=== PATIENT | female | born 1970 | race Two or more races ===

== ENCOUNTER 2018-11-19 06:38 | Outpatient (CLI) | payer OTHER | END 2018-11-19 06:49 | disposition home or self-care (01) | LOC: LAB 06:38 | DX: Z13.1 Encounter for screening for diabetes mellitus (principal); E55.9 Vitamin D deficiency, unspecified; Z12.11 Encounter for screening for malignant neoplasm of colon; N95.1 Menopausal and female climacteric states ==

== ENCOUNTER 2018-11-19 08:21 | Outpatient (CLI) | payer OTHER | END 2018-11-19 08:22 | disposition home or self-care (01) | LOC: MAMO-SONO 08:21 | DX: Z12.31 Encounter for screening mammogram for malignant neoplasm of breast (principal) ==

== ENCOUNTER 2019-01-30 10:08 | Emergency (ER) | payer OTHER ==
[~2019-01-30] VITALS: Ht 167.6 cm; Wt 81.2 kg
[2019-01-30] MEDS ORDERED: MECLIZINE HCL25 MG PO (16:03)
== END 2019-01-30 16:19 | disposition home or self-care (01) ==
LOC: ER 10:08
DX: H81.13 Benign paroxysmal vertigo, bilateral (principal)

== ENCOUNTER 2019-05-11 12:13 | Outpatient (CLI) | payer OTHER ==
[~2019-05-11 12:13] MED LIST: MECLIZINE HCL25 MG PO
== END 2019-05-11 12:51 | disposition home or self-care (01) ==
LOC: LAB 12:13
DX: J11.1 Influenza due to unidentified influenza virus with other respiratory manifestations (principal); A49.3 Mycoplasma infection, unspecified site

== ENCOUNTER 2019-05-13 06:30 | Outpatient (CLI) | payer OTHER | END 2019-05-13 06:35 | disposition home or self-care (01) | LOC: LAB 06:30 | DX: J11.1 Influenza due to unidentified influenza virus with other respiratory manifestations (principal) ==

== ENCOUNTER → 2019-12-30 06:41 | Outpatient (CLI) | payer OTHER | END | disposition home or self-care (01) | LOC: LAB 06:41 | DX: R53.1 Weakness (principal); Z00.8 Encounter for other general examination; Z13.820 Encounter for screening for osteoporosis; M25.50 Pain in unspecified joint; Z13.6 Encounter for screening for cardiovascular disorders ==

== ENCOUNTER 2019-12-30 09:22 | Outpatient (CLI) | payer OTHER | END 2019-12-30 10:55 | disposition home or self-care (01) | LOC: NUCLEAR 09:22 | DX: M25.552 Pain in left hip (principal); M25.551 Pain in right hip; R53.81 Other malaise; Z13.820 Encounter for screening for osteoporosis ==

== ENCOUNTER → 2019-12-31 09:40 | Outpatient (CLI) | payer OTHER | END | disposition home or self-care (01) | LOC: LAB 09:40 | DX: R53.1 Weakness (principal); Z00.00 Encounter for general adult medical examination without abnormal findings; Z13.820 Encounter for screening for osteoporosis; M25.50 Pain in unspecified joint ==

== ENCOUNTER 2020-07-27 15:21 | Outpatient (CLI) | payer OTHER | END 2020-07-27 16:17 | disposition home or self-care (01) | LOC: OFIC 805 15:21 | PROVIDERS: ATTEND Otolaryngology | DX: H81.13 Benign paroxysmal vertigo, bilateral (principal); H91.8X3 Other specified hearing loss, bilateral ==

== ENCOUNTER 2020-08-09 06:00 | Outpatient (CLI) | payer OTHER | END 2020-08-09 14:15 | disposition home or self-care (01) | LOC: PPH VACUNA 06:00 | DX: Z23 Encounter for immunization (principal) ==

== ENCOUNTER 2020-08-29 13:19 | Outpatient (CLI) | payer OTHER | END 2020-08-29 13:29 | disposition home or self-care (01) | LOC: LAB 13:19 | PROVIDERS: ATTEND General Practice | DX: R05 Cough (principal) ==

== ENCOUNTER → 2020-12-02 | Outpatient (CLI) | payer OTHER | END | disposition home or self-care (01) | LOC: OFIC 805 10:30 | PROVIDERS: ATTEND Otolaryngology | DX: H91.8X3 Other specified hearing loss, bilateral (principal); H81.8X3 Other disorders of vestibular function, bilateral ==

== ENCOUNTER 2021-04-12 11:06 | Outpatient (CLI) | payer OTHER | END 2021-04-12 12:07 | disposition home or self-care (01) | LOC: OFIC 805 11:06 | PROVIDERS: ATTEND Otolaryngology Otology & Neurotology | DX: R42 Dizziness and giddiness (principal); H91.8X3 Other specified hearing loss, bilateral ==

== ENCOUNTER → 2021-04-19 | Outpatient (CLI) | payer OTHER | END | disposition home or self-care (01) | LOC: MRI 07:11 | PROVIDERS: ATTEND Otolaryngology Otology & Neurotology | DX: R42 Dizziness and giddiness (principal); G93.89 Other specified disorders of brain | CPT/HCPCS: 70551 ==

== ENCOUNTER → 2021-07-12 08:34 | Outpatient (CLI) | payer OTHER | END | disposition home or self-care (01) | LOC: LAB 08:34 | PROVIDERS: ATTEND Preventive Medicine Occupational Medicine | DX: N28.89 Other specified disorders of kidney and ureter (principal); D64.89 Other specified anemias ==

== ENCOUNTER 2021-07-26 08:21 | Outpatient (CLI) | payer OTHER | END 2021-07-26 08:28 | disposition home or self-care (01) | LOC: MAMO-SONO 08:21 | PROVIDERS: ATTEND Radiology Diagnostic Radiology | DX: N64.59 Other signs and symptoms in breast (principal); Z12.31 Encounter for screening mammogram for malignant neoplasm of breast ==